=== PATIENT | male | born 1990 | race African-American/Black ===

== ENCOUNTER 2019-10-15 15:52 | Emergency (ER) | payer BC, MEDICAID ==
[~2019-10-15] VITALS: Ht 175.3 cm; Wt 102.0 kg
[~2019-10-15 15:52] MED LIST: UNK MEDS
[2019-10-15 16:02] VITALS: BP 121/76
[2019-10-15] MEDS ORDERED: IBUPROFEN 600MG TABLET PO ONE (17:00)
== END 2019-10-15 17:12 | disposition home or self-care (01) ==
LOC: ER 15:52
DX: S43.492A Other sprain of left shoulder joint, initial encounter (principal); V49.49XA Driver injured in collision with other motor vehicles in traffic accident, initial encounter; Y93.89 Activity, other specified; Y92.488 Other paved roadways as the place of occurrence of the external cause
CPT/HCPCS: 99282

== ENCOUNTER 2020-10-01 13:17 | Emergency (ER) | payer BC, MEDICAID ==
[~2020-10-01] VITALS: Ht 175.3 cm; Wt 109.0 kg
[2020-10-01 14:19] VITALS: BP 118/83
== END 2020-10-01 14:21 | disposition home or self-care (01) ==
LOC: ER 13:17
DX: B08.4 Enteroviral vesicular stomatitis with exanthem (principal); R21 Rash and other nonspecific skin eruption
CPT/HCPCS: 99281